=== PATIENT | female | born 1965 | race Caucasian/White ===

== ENCOUNTER 2017-02-05 09:44 | Emergency (ER) | payer MEDICAID ==
[~2017-02-05] VITALS: Ht 172.7 cm; Wt 163.6 kg
[~2017-02-05 09:44] MED LIST: ACET-2744 PO; IBUP-1547 PO; METH1ADH7 TD
[2017-02-05] MEDS ORDERED: ESCI5TAB10 PO (10:11)
[2017-02-05] MEDS ORDERED: BUSP5TAB3 PO (10:11)
[2017-02-05] MEDS ORDERED: HYDR-3965 PO (10:11)
[2017-02-05] MEDS ORDERED: ZOLP10 PO (10:11)
[2017-02-05 11:53] VITALS: BP 144/95
== END 2017-02-05 12:09 | disposition home or self-care (01) ==
LOC: EMS 09:45
DX: T81.30XA Disruption of wound, unspecified, initial encounter (principal); I10 Essential (primary) hypertension; Z88.6 Allergy status to analgesic agent; Z88.5 Allergy status to narcotic agent; Z88.8 Allergy status to other drugs, medicaments and biological substances
CPT/HCPCS: 99283